=== PATIENT | male | born 2000 | race Caucasian/White ===

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

== ENCOUNTER 2021-07-05 03:04 | Emergency (ER) | payer BC ==
[2021-07-05 03:10] VITALS: TEMP 97.7
[2021-07-05] MEDS ORDERED: MORPHINE SULFATE 4 MG/ML SYRINGE IV STA (04:05)
[2021-07-05] MEDS ORDERED: KETOROLAC 15 MG/ML 1 ML VIAL IVP STA (04:05)
[2021-07-05] MEDS ORDERED: SODIUM CHLORIDE 0.9% 500 ML 500 ML IV STA (04:05)
[2021-07-05] MEDS ORDERED: SODIUM CHLORIDE 0.9% 1,000 ML IV STA (04:05)
[2021-07-05] MEDS ORDERED: ONDANSETRON 4 MG/2 ML VIAL IVP STA (04:05)
--- NOTE | 2021-07-05 04:07 | ED ---
Abdominal Pain HPI - General Chief Complaint: Abdominal Pain Stated Complaint: Abdominal pain Time Seen by Provider: 07/05/21 03:23 Source: patient, RN notes reviewed, old records reviewed, Caregiver Mode of arrival: wheelchair - History of Present Illness Initial Comments: This is a 21-year-old male who is presented today for evaluation. Patient presents today for evaluation regards to abdominal pain epigastric right lower quadrant abdominal pain. Family concerned for appendicitis. Patient also had nausea vomiting multiple times night unable to keep anything down as well as low-grade fever. Patient states symptoms began while at work earlier today having persistent. They wax and wane throughout the day but it got worse. Known at work or at home is sick MD Complaint: abdominal pain -: hour(s) Location: diffuse, LLQ, epigastric, suprapubic Radiation: epigastric, suprapubic Migration to: no migration, RLQ Severity: moderate Severity scale (1-10): 7 Quality: fullness, sharp Improves With: nothing Worsens With: nothing Associated Symptoms: nausea, vomiting Treatments Prior to Arrival: other (none) - Related Data Home Medications Medication Instructions Recorded Confirmed No Known Home Medications 10/26/18 10/26/18 Allergies Allergy/AdvReac Type Severity Reaction Status Date / Time No Known Allergies Allergy Verified 07/05/21 03:10 Review of Systems ROS Statement: Those systems with pertinent positive or pertinent negative responses have been documented in the HPI. ROS Other: All systems not noted in ROS Statement are negative. Past Medical History Past Medical History: No Reported History History of Any Multi-Drug Resistant Organisms: None Reported Past Surgical History: No Surgical Hx Reported Past Psychological History: ADD/ADHD Smoking Status: Former smoker Past Alcohol Use History: Occasional Past Drug Use History: None Reported General Exam General appearance: alert, in no apparent distress Head exam: Present: atraumatic, normocephalic, normal inspection Eye exam: Present: normal appearance, PERRL, EOMI. Absent: scleral icterus, conjunctival injection, periorbital swelling ENT exam: Present: normal exam, mucous membranes moist Neck exam: Present: normal inspection. Absent: tenderness, meningismus, lymphadenopathy Respiratory exam: Present: normal lung sounds bilaterally. Absent: respiratory distress, wheezes, rales, rhonchi, stridor Cardiovascular Exam: Present: normal rhythm, tachycardia, normal heart sounds. Absent: systolic murmur, diastolic murmur, rubs, gallop, clicks GI/Abdominal exam: Present: soft, tenderness, guarding, normal bowel sounds. Absent: distended, rebound, rigid Extremities exam: Present: normal inspection, full ROM, normal capillary refill. Absent: tenderness, pedal edema, joint swelling, calf tenderness Back exam: Present: normal inspection Neurological exam: Present: alert, oriented X3, CN II-XII intact Psychiatric exam: Present: normal affect, normal mood Skin exam: Present: warm, dry, intact, normal color. Absent: rash Course Vital Signs 07/05/21 07/05/21 03:07 06:49 Temperature 97.7 F Pulse Rate 105 H 95 Respiratory 18 16 Rate Blood Pressure 127/68 124/80 O2 Sat by Pulse 98 96 Oximetry - Reevaluation(s) Reevaluation #1: 07/05/21 05:11 medical record is reviewed Reevaluation #2: 07/05/21 Patient significantly improved currently feeling better Reevaluation #3: 07/05/21 Patient informed of results and questions have been answered Medical Decision Making - Medical Decision Making 21 male DF for evaluation of episodes of vomiting and diarrhea. Abdominal pain severe epigastric right lower quadrant CT head and pelvis is negative for appendicitis does have significant leukocytosis likely from gas pro-neuritis and illness dehydration patient feeling better here in the ER tolerating oral intake and can be discharged home - Lab Data Result diagrams: 07/05/21 04:06 07/05/21 04:06 Lab Results 07/05/21 07/05/21 07/05/21 Range/Units 04:06 04:06 04:06 WBC 21.2 H (3.8-10.6) k/uL RBC 4.72 (4.30-5.90) m/uL Hgb 14.6 (13.0-17.5) gm/dL Hct 40.5 (39.0-53.0) % MCV 85.8 (80.0-100.0) fL MCH 30.8 (25.0-35.0) pg MCHC 35.9 (31.0-37.0) g/dL RDW 12.2 (11.5-15.5) % Plt Count 243 (150-450) k/uL MPV 8.0 Neutrophils % 89 % Lymphocytes % 4 % Monocytes % 6 % Eosinophils % 1 % Basophils % 0 % Neutrophils # 18.8 H (1.3-7.7) k/uL Lymphocytes # 0.7 L (1.0-4.8) k/uL Monocytes # 1.3 H (0-1.0) k/uL Eosinophils # 0.2 (0-0.7) k/uL Basophils # 0.1 (0-0.2) k/uL Sodium 137 (137-145) mmol/L Potassium 3.5 (3.5-5.1) mmol/L Chloride 105 (98-107) mmol/L Carbon Dioxide 24 (22-30) mmol/L Anion Gap 8 mmol/L BUN 11 (9-20) mg/dL Creatinine 0.71 (0.66-1.25) mg/dL Est GFR (CKD-EPI)AfAm >90 (>60 ml/min/1.73 sqM) Est GFR (CKD-EPI)NonAf >90 (>60 ml/min/1.73 sqM) Glucose 104 H (74-99) mg/dL Plasma Lactic Acid Slava 0.8 (0.7-2.0) mmol/L Calcium 8.6 (8.4-10.2) mg/dL Total Bilirubin 1.0 (0.2-1.3) mg/dL AST 30 (17-59) U/L ALT 29 (4-49) U/L Alkaline Phosphatase 65 (38-126) U/L Total Protein 6.9 (6.3-8.2) g/dL Albumin 4.0 (3.5-5.0) g/dL Amylase 72 (30-110) U/L Lipase 41 (23-300) U/L - Radiology Data Radiology results: report reviewed (CT of the abdomen and pelvis is negative for acute disease), image reviewed Disposition Clinical Impression: Abdominal pain, Gastroenteritis Disposition: HOME SELF-CARE Condition: Good Instructions (If sedation given, give patient instructions): Gastroenteritis (ED), Abdominal Pain (ED) Is patient prescribed a controlled substance at d/c from ED?: No Referrals: Gill Amaya MD [Primary Care Provider] - 1-2 days
--- NOTE | 2021-07-05 04:41 | CT ---
EXAMINATION TYPE: CT abdomen pelvis w con DATE OF EXAM: 07/05/2021 COMPARISON: None HISTORY: abdominal pain CT DLP: 514.6 mGycm Automated exposure control for dose reduction was used. CONTRAST: Performed with IV Contrast, patient injected with 100 mL of Isovue 300. Lung bases are clear. There is no pleural effusion. Heart size is normal. There is no pericardial eff usion. Liver spleen and stomach pancreas and gallbladder appear normal. The bile ducts are not dilate d. There is no adrenal mass. Kidneys show satisfactory contrast opacification. There is no hydronephrosi s. Ureters are not dilated. There is no retroperitoneal adenopathy. Delayed images show normal renal excretion. Bladder distends smoothly. There is no inguinal hernia. There is no free fluid in the pelv is. There is no mesenteric edema. There is no ascites or free air. There is no bowel obstruction. Appendi x not well seen. No sign of thickened appendix. The lumbar vertebrae have normal alignment. There is no compression fracture. Posterior elements are intact. There is no focal bone destruction. The bony pelvis is intact. Hip joints appear normal. IMPRESSION: Negative CT scan abdomen and pelvis. Appendix not seen.
[2021-07-05 06:01] LABS: Basophils # (A) 0.1 k/uL (0-0.2); Basophils % (A) 0 %; Eosinophils # (A) 0.2 k/uL (0-0.7); Eosinophils % (A) 1 %; HCT 40.5 % (39.0-53.0); HGB 14.6 gm/dL (13.0-17.5); Lymphocytes # (A) 0.7 k/uL (1.0-4.8); Lymphocytes % (A) 4 %; MCH 30.8 pg (25.0-35.0); MCHC 35.9 g/dL (31.0-37.0); MCV 85.8 fL (80.0-100.0); Monocytes # (A) 1.3 k/uL (0-1.0); Monocytes % (A) 6 %; Neutrophils # (A) 18.8 k/uL (1.3-7.7); Neutrophils % (A) 89 %; Platelet Count 243 k/uL (150-450); RBC 4.72 m/uL (4.30-5.90); RDW 12.2 % (11.5-15.5); WBC 21.2 k/uL (3.8-10.6)
[2021-07-05 06:19] LABS: ALT 29 U/L (4-49); AST 30 U/L (17-59); African American GFR (CKD) >90 (>60 ml/min/1.73 sqM); Alkaline Phosphatase 65 U/L (38-126); Amylase 72 U/L (30-110); Anion Gap 8 mmol/L; Blood Urea Nitrogen 11 mg/dL (9-20); Calcium 8.6 mg/dL (8.4-10.2); Carbon Dioxide 24 mmol/L (22-30); Chloride 105 mmol/L (98-107); Glucose 104 mg/dL (74-99); Lipase 41 U/L (23-300); Non-African American GFR(CKD) >90 (>60 ml/min/1.73 sqM); Potassium 3.5 mmol/L (3.5-5.1); Sodium 137 mmol/L (137-145); Total Protein 6.9 g/dL (6.3-8.2)
[2021-07-05] MEDS ORDERED: ONDANSETRON 4 MG ODT STARTER PACK 2 TAB BTL PO STA (06:28)
[2021-07-05] MEDS ORDERED: IBUPROFEN 600 MG STARTER PACK 4 TAB BTL PO STA (06:28)
[2021-07-05] MEDS ORDERED: ACET/COD 300 MG/30 MG STARTER PACK 6 TAB BTL PO STA (06:28)
[2021-07-05 06:51] VITALS: BP 124/80; PULSE 95; RESP 16
== END 2021-07-05 06:53 | disposition home or self-care (01) ==
LOC: EC 03:04
DX: K52.9 Noninfective gastroenteritis and colitis, unspecified (principal); F90.9 Attention-deficit hyperactivity disorder, unspecified type; Z87.891 Personal history of nicotine dependence
CPT/HCPCS: 99284; 96374; 96375 ×2; 36415; 80053; 82150; 83605; 83690; 85025; 74177; J2270; J2405; J1885; S0119; Q9967

== ENCOUNTER 2021-07-07 16:21 | Observation (INO) | payer BC ==
--- NOTE | 2021-07-07 17:37 | XR ---
EXAMINATION TYPE: XR KUB DATE OF EXAM: 07/07/2021 5:25 PM INDICATION: Patient age:Male; 21 years old; Reason for study: abdominal pain; COMPARISON: CT abdomen pelvis 07/05/2021. TECHNIQUE: One radiographic view of the abdomen was obtained. FINDINGS: The bowel gas pattern is nonspecific without dilated loops of small or large bowel. There i s no evidence for organomegaly or pneumoperitoneum. The osseous structures are intact. No abnormal calcifications are present. Fecal material and gas are demonstrated throughout the colon and rectum. IMPRESSION: Nonspecific bowel gas pattern without radiographic evidence for acute process.
[2021-07-07 17:57] LABS: ALT 26 U/L (4-49); AST 28 U/L (17-59); African American GFR (CKD) >90 (>60 ml/min/1.73 sqM); Albumin 4.2 g/dL (3.5-5.0); Alkaline Phosphatase 71 U/L (38-126); Amylase 50 U/L (30-110); Anion Gap 9 mmol/L; Blood Urea Nitrogen 16 mg/dL (9-20); Calcium 8.7 mg/dL (8.4-10.2); Carbon Dioxide 28 mmol/L (22-30); Chloride 99 mmol/L (98-107); Glucose 92 mg/dL (74-99); Lipase 32 U/L (23-300); Non-African American GFR(CKD) >90 (>60 ml/min/1.73 sqM); Potassium 3.9 mmol/L (3.5-5.1); Sodium 136 mmol/L (137-145); Total Protein 7.3 g/dL (6.3-8.2)
[2021-07-07 18:19] LABS: Basophils % (A) 0 %; Eosinophils # (A) 0.2 k/uL (0-0.7); Eosinophils % (A) 2 %; HCT 44.7 % (39.0-53.0); HGB 15.4 gm/dL (13.0-17.5); Lymphocytes # (A) 1.4 k/uL (1.0-4.8); Lymphocytes % (A) 15 %; MCH 30.4 pg (25.0-35.0); MCHC 34.5 g/dL (31.0-37.0); Mean Platelet Volume 7.7; Monocytes # (A) 0.7 k/uL (0-1.0); Monocytes % (A) 8 %; Neutrophils # (A) 6.6 k/uL (1.3-7.7); Neutrophils % (A) 72 %; Platelet Count 225 k/uL (150-450); RBC 5.08 m/uL (4.30-5.90); RDW 12.6 % (11.5-15.5); WBC 9.2 k/uL (3.8-10.6)
[2021-07-07 20:58] LABS: Appearance,Urine Clear (Clear); Bacteria,Urine Rare /hpf; Bilirubin,Urine Negative (Negative); Blood,Urine Negative (Negative); Color,Urine Yellow; Glucose,Urine (UA) Negative (Negative); Ketones,Urine Negative (Negative); Leukocyte Esterase,Urine Trace (Negative); Mucus,Urine Rare /hpf; Nitrite,Urine Negative (Negative); Protein,Urine Negative (Negative); RBC,Urine <1 /hpf (0-5); Specific Gravity,Urine 1.024 (1.001-1.035); WBC,Urine 11 /hpf (0-5)
[2021-07-07] MEDS ORDERED: SODIUM CHLORIDE 0.9% 1,000 ML IV ONE (21:47)
[2021-07-07] MEDS ORDERED: KETOROLAC 15 MG/ML 1 ML VIAL IVP STA (22:00)
--- NOTE | 2021-07-07 22:18 | CT ---
EXAMINATION TYPE: CT abdomen pelvis w con DATE OF EXAM: 07/07/2021 COMPARISON: 07/05/2021 HISTORY: RLQ pain, appendicitis suspected CT DLP: 582.2 mGycm Automated exposure control for dose reduction was used. CONTRAST: Performed with IV Contrast, patient injected with 100 mL of Isovue 300. Images obtained from the diaphragm to the floor of the pelvis with IV contrast. The lung bases are clear. There is no pleural effusion. Heart size is normal. There is no pericardial effusion. Liver spleen and stomach pancreas and gallbladder appear normal. The bile ducts are not di lated. There is no adrenal mass. Kidneys have normal size and contour. There is no hydronephrosis. Ureters a re not dilated. There is no retroperitoneal adenopathy. Bladder distends smoothly. There is narrowing little hernia. There is small amount of free fluid in t he pelvis. There is some fat stranding in the right paracolic gutter. There is apparent dilated fluid -filled appendix that measures 13 mm in diameter. There is no free air. There is no bowel obstruction. Lumbar vertebra appear intact. There is normal a lignment of the vertebral bodies. Posterior elements are intact. The bony pelvis is intact. Hip joint s are intact. Sacroiliac joints appear normal. IMPRESSION: There is dilated fluid-filled appendix consistent with appendicitis. Small amount of free fluid in th e pelvis. Appendiceal rupture is possible. Abnormalities appear new compared to recent exam.
[2021-07-07] MEDS ORDERED: NALOXONE 0.4 MG/ML 1 ML VIAL IV PRN (22:33)
[2021-07-07] MEDS ORDERED: MORPHINE SULFATE 4 MG/ML SYRINGE IV PRN (22:33)
[2021-07-07] MEDS ORDERED: ONDANSETRON 4 MG/2 ML VIAL IVP PRN (22:33)
--- NOTE | 2021-07-07 22:55 | ED ---
Abdominal Pain HPI - General Chief Complaint: Abdominal Pain Stated Complaint: revisit - abd pain Time Seen by Provider: 07/07/21 21:02 Source: patient Mode of arrival: ambulatory Limitations: no limitations - History of Present Illness Initial Comments: Patient is a 21-year-old male presenting with chief complaint of abdominal pain. Patient was seen here 2 days prior with right lower quadrant and periumbilical pain. Abdominal CT showed no abnormalities, and he was instructed to follow up outpatient. Today at his follow-up the provider sent him back to the ER due to his abdomen being distended. Patient is still complaining of pain that comes an d goes. It is a sharp stabbing pain that is localized to the right lower quadrant, and radiates to the left lower quadrant. Patient states that he been nauseous today and vomited several times and he has noticed a slight fever. Pain is worse with meals. Patient has been taking Motrin and Tylenol which is somewhat helpful in alleviating his pain. He admits to dysuria. Denies shortness of breath, chest pain, diarrhea, constipation, urgency, frequency, testicular pain, penile pain, penile discharge, headache, vision changes, chills, weakness. - Related Data Home Medications Medication Instructions Recorded Confirmed No Known Home Medications 10/26/18 07/07/21 Allergies Allergy/AdvReac Type Severity Reaction Status Date / Time No Known Allergies Allergy Verified 07/07/21 22:40 Review of Systems ROS Statement: Those systems with pertinent positive or pertinent negative responses have been documented in the HPI. ROS Other: All systems not noted in ROS Statement are negative. Past Medical History Past Medical History: No Reported History History of Any Multi-Drug Resistant Organisms: None Reported Past Surgical History: No Surgical Hx Reported Past Psychological History: ADD/ADHD Smoking Status: Former smoker Past Alcohol Use History: Occasional Past Drug Use History: None Reported General Exam Limitations: no limitations General appearance: alert, in distress (in pain) Head exam: Present: atraumatic, normocephalic, normal inspection Eye exam: Present: normal appearance, PERRL, EOMI. Absent: scleral icterus, conjunctival injection, periorbital swelling Neck exam: Present: normal inspection Respiratory exam: Present: normal lung sounds bilaterally. Absent: respiratory distress, wheezes, rales, rhonchi, stridor Cardiovascular Exam: Present: regular rate, normal rhythm, normal heart sounds. Absent: systolic murmur, diastolic murmur, rubs, gallop, clicks GI/Abdominal exam: Present: distended, tenderness, guarding, rebound, normal bowel sounds. Absent: rigid Neurological exam: Present: alert, oriented X3, CN II-XII intact Psychiatric exam: Present: normal affect, normal mood Skin exam: Present: warm, dry, intact, normal color. Absent: rash Course Vital Signs 07/07/21 07/07/21 07/07/21 17:12 17:16 23:53 Temperature 100.9 F H 98.5 F Pulse Rate 77 Respiratory 18 Rate Blood Pressure 120/77 O2 Sat by Pulse 100 Oximetry 07/08/21 01:00 Temperature 98.6 F Pulse Rate 60 Respiratory 18 Rate Blood Pressure 111/67 O2 Sat by Pulse 100 Oximetry - Reevaluation(s) Reevaluation #1: Spoke with Dr. Kaufman. Advised starting patient on IV Zosyn and fluids. Surgery will follow-up in the morning. Patient is resting, states his pain has gone down from an 8 out of 10 to a 5 out of 10. 07/07/21 23:02 Medical Decision Making - Medical Decision Making Patient is a 21-year-old female presenting with chest pain. Pain is located in the right lower quadrant and radiates to the left lower quadrant and periumbilical area. He was seen in this ER 2 days ago for evaluation, CT was negative and he was advised to follow up outpatient. During his follow-up today the provider advised him to report to the ER due to abdominal distention. On exam he is diffusely tender and guarding. Positive for rebound tenderness. No leukocytosis, UA indicates potential infection of the urinary tract. Pt received 1L IV NS bolus and 15mg toradol, pain was responsive to toradol. Repeat CT is positive for appendicitis with potential rupture. I spoke with Dr. Kaufman who advised admission with IV fluids and Zosyn, surgery will follow up in the morning. I informed the patient and his father of diagnoses and course of treatment. Answered all questions. Patient conveyed verbal understanding and agreed to the plan. I discussed this case with my attending Dr. Chavez. - Lab Data Result diagrams: 07/07/21 17:37 07/07/21 17:37 Lab Results 07/07/21 07/07/21 07/07/21 Range/Units 17:37 17:37 17:37 WBC 9.2 (3.8-10.6) k/uL RBC 5.08 (4.30-5.90) m/uL Hgb 15.4 (13.0-17.5) gm/dL Hct 44.7 (39.0-53.0) % MCV 88.0 (80.0-100.0) fL MCH 30.4 (25.0-35.0) pg MCHC 34.5 (31.0-37.0) g/dL RDW 12.6 (11.5-15.5) % Plt Count 225 (150-450) k/uL MPV 7.7 Neutrophils % 72 % Lymphocytes % 15 % Monocytes % 8 % Eosinophils % 2 % Basophils % 0 % Neutrophils # 6.6 (1.3-7.7) k/uL Lymphocytes # 1.4 (1.0-4.8) k/uL Monocytes # 0.7 (0-1.0) k/uL Eosinophils # 0.2 (0-0.7) k/uL Basophils # 0.0 (0-0.2) k/uL Sodium 136 L (137-145) mmol/L Potassium 3.9 (3.5-5.1) mmol/L Chloride 99 (98-107) mmol/L Carbon Dioxide 28 (22-30) mmol/L Anion Gap 9 mmol/L BUN 16 (9-20) mg/dL Creatinine 0.99 (0.66-1.25) mg/dL Est GFR (CKD-EPI)AfAm >90 (>60 ml/min/1.73 sqM) Est GFR (CKD-EPI)NonAf >90 (>60 ml/min/1.73 sqM) Glucose 92 (74-99) mg/dL Plasma Lactic Acid Slava 0.8 (0.7-2.0) mmol/L Calcium 8.7 (8.4-10.2) mg/dL Total Bilirubin 1.0 (0.2-1.3) mg/dL AST 28 (17-59) U/L ALT 26 (4-49) U/L Alkaline Phosphatase 71 (38-126) U/L Total Protein 7.3 (6.3-8.2) g/dL Albumin 4.2 (3.5-5.0) g/dL Amylase 50 (30-110) U/L Lipase 32 (23-300) U/L Urine Color Urine Appearance (Clear) Urine pH (5.0-8.0) Ur Specific [place] (1.001-1.035) Urine Protein (Negative) Urine Glucose (UA) (Negative) Urine Ketones (Negative) Urine Blood (Negative) Urine Nitrite (Negative) Urine Bilirubin (Negative) Urine Urobilinogen (<2.0) mg/dL Ur Leukocyte Esterase (Negative) Urine RBC (0-5) /hpf Urine WBC (0-5) /hpf Urine Bacteria (None) /hpf Urine Mucus (None) /hpf 07/07/21 Range/Units 20:32 WBC (3.8-10.6) k/uL RBC (4.30-5.90) m/uL Hgb (13.0-17.5) gm/dL Hct (39.0-53.0) % MCV (80.0-100.0) fL MCH (25.0-35.0) pg MCHC (31.0-37.0) g/dL RDW (11.5-15.5) % Plt Count (150-450) k/uL MPV Neutrophils % % Lymphocytes % % Monocytes % % Eosinophils % % Basophils % % Neutrophils # (1.3-7.7) k/uL Lymphocytes # (1.0-4.8) k/uL Monocytes # (0-1.0) k/uL Eosinophils # (0-0.7) k/uL Basophils # (0-0.2) k/uL Sodium (137-145) mmol/L Potassium (3.5-5.1) mmol/L Chloride (98-107) mmol/L Carbon Dioxide (22-30) mmol/L Anion Gap mmol/L BUN (9-20) mg/dL Creatinine (0.66-1.25) mg/dL Est GFR (CKD-EPI)AfAm (>60 ml/min/1.73 sqM) Est GFR (CKD-EPI)NonAf (>60 ml/min/1.73 sqM) Glucose (74-99) mg/dL Plasma Lactic Acid Slava (0.7-2.0) mmol/L Calcium (8.4-10.2) mg/dL Total Bilirubin (0.2-1.3) mg/dL AST (17-59) U/L ALT (4-49) U/L Alkaline Phosphatase (38-126) U/L Total Protein (6.3-8.2) g/dL Albumin (3.5-5.0) g/dL Amylase (30-110) U/L Lipase (23-300) U/L Urine Color Yellow Urine Appearance Clear (Clear) Urine pH 6.0 (5.0-8.0) Ur Specific [place] 1.024 (1.001-1.035) Urine Protein Negative (Negative) Urine Glucose (UA) Negative (Negative) Urine Ketones Negative (Negative) Urine Blood Negative (Negative) Urine Nitrite Negative (Negative) Urine Bilirubin Negative (Negative) Urine Urobilinogen 6.0 (<2.0) mg/dL Ur Leukocyte Esterase Trace H (Negative) Urine RBC <1 (0-5) /hpf Urine WBC 11 H (0-5) /hpf Urine Bacteria Rare H (None) /hpf Urine Mucus Rare H (None) /hpf Disposition Clinical Impression: Acute appendicitis, Abdominal pain Disposition: ADMITTED IP TO THIS [facility] Condition: Stable Decision to Admit Reason: Admit from EC Decision Date: 07/07/21 Decision Time: 23:35
[2021-07-07] MEDS ORDERED: PIPERACILLIN-TAZOBACTAM 3.375 GM in SODIUM CHLORIDE 0.9% 100 ML IVPB ONE (23:00)
[2021-07-07] MEDS: SODIUM CHLORIDE 0.9% 1,000 ML IV SCH (23:47)
[2021-07-08] MEDS ORDERED: PIPERACILLIN-TAZOBACTAM 3.375 GM in SODIUM CHLORIDE 0.9% 100 ML IVPB SCH ×2
[2021-07-08 05:21] LABS: ALT 21 U/L (4-49); AST 22 U/L (17-59); African American GFR (CKD) >90 (>60 ml/min/1.73 sqM); Albumin 3.3 g/dL (3.5-5.0); Alkaline Phosphatase 59 U/L (38-126); Anion Gap 4 mmol/L; Blood Urea Nitrogen 15 mg/dL (9-20); Calcium 8.3 mg/dL (8.4-10.2); Carbon Dioxide 27 mmol/L (22-30); Chloride 104 mmol/L (98-107); Glucose 89 mg/dL (74-99); Non-African American GFR(CKD) >90 (>60 ml/min/1.73 sqM); Potassium 3.8 mmol/L (3.5-5.1); Sodium 135 mmol/L (137-145); Total Bilirubin 0.7 mg/dL (0.2-1.3); Total Protein 5.9 g/dL (6.3-8.2)
[2021-07-08 05:27] LABS: Basophils # (A) 0.1 k/uL (0-0.2); Basophils % (A) 1 %; Eosinophils # (A) 0.3 k/uL (0-0.7); Eosinophils % (A) 4 %; HCT 38.8 % (39.0-53.0); HGB 13.5 gm/dL (13.0-17.5); Lymphocytes # (A) 2.1 k/uL (1.0-4.8); Lymphocytes % (A) 25 %; MCH 30.4 pg (25.0-35.0); MCHC 34.7 g/dL (31.0-37.0); MCV 87.7 fL (80.0-100.0); Monocytes # (A) 0.9 k/uL (0-1.0); Monocytes % (A) 10 %; Neutrophils # (A) 4.9 k/uL (1.3-7.7); Neutrophils % (A) 57 %; Platelet Count 188 k/uL (150-450); RBC 4.43 m/uL (4.30-5.90); RDW 12.1 % (11.5-15.5); WBC 8.5 k/uL (3.8-10.6)
[2021-07-08] MEDS: PIPERACILLIN-TAZOBACTAM 3.375 GM in SODIUM CHLORIDE 0.9% 100 ML IVPB SCH ×2 (08:02→17:11)
[2021-07-08] MEDS: SODIUM CHLORIDE 0.9% 1,000 ML IV SCH ×3 (08:03→21:23)
[2021-07-08] MEDS ORDERED: IV FLUID CONTINUATION 800 ML IV ONE (08:24)
[2021-07-08] MEDS ORDERED: ONDANSETRON 4 MG/2 ML VIAL IVP ONE (08:34)
[2021-07-08] MEDS ORDERED: HEPARIN SODIUM,PORCINE 5,000 UNIT/ML 1 ML VIAL SQ ONE (08:34)
[2021-07-08] MEDS ORDERED: HEPARIN SODIUM,PORCINE/PF 5,000 UNIT/0.5 ML SYRINGE SQ ONE (08:35)
[2021-07-08] MEDS ORDERED: DEXAMETHASONE SOD PHOSPHATE 4 MG/ML 1 ML VIAL IV ONE (08:35)
--- NOTE | 2021-07-08 08:46 | P.GSHP ---
History of Present Illness H&P Date: 07/08/21 Chief Complaint: Acute appendicitis This a 21-year-old male presents today for laparoscopic appendectomy. Patient was admitted through the emergency room with right lower quadrant pain. His CAT scan suggestive of acute appendicitis Past Medical History Past Medical History: No Reported History History of Any Multi-Drug Resistant Organisms: None Reported Past Surgical History: No Surgical Hx Reported Past Psychological History: ADD/ADHD Smoking Status: Former smoker Past Alcohol Use History: Occasional Past Drug Use History: None Reported Medications and Allergies Home Medications Medication Instructions Recorded Confirmed Type No Known Home Medications 10/26/18 07/07/21 History Allergies Allergy/AdvReac Type Severity Reaction Status Date / Time No Known Allergies Allergy Verified 07/07/21 22:40 Surgical - Exam Vital Signs Pulse Resp BP Pulse Ox 77 18 120/77 100 07/07/21 17:12 07/07/21 17:12 07/07/21 17:12 07/07/21 17:12 - General well developed, well nourished, no distress - Eyes PERRL - ENT normal pinna - Neck no masses - Respiratory normal expansion - Cardiovascular Rhythm: regular - Abdomen Abdomen: soft, non tender Results - Labs 07/08/21 04:45 07/08/21 04:45 Abnormal Lab Results - Last 24 Hours (Table) 07/07/21 07/07/21 07/08/21 Range/Units 17:37 20:32 04:45 Hct 38.8 L (39.0-53.0) % Sodium 136 L (137-145) mmol/L Calcium (8.4-10.2) mg/dL Total Protein (6.3-8.2) g/dL Albumin (3.5-5.0) g/dL Ur Leukocyte Esterase Trace H (Negative) Urine WBC 11 H (0-5) /hpf Urine Bacteria Rare H (None) /hpf Urine Mucus Rare H (None) /hpf 07/08/21 Range/Units 04:45 Hct (39.0-53.0) % Sodium 135 L (137-145) mmol/L Calcium 8.3 L (8.4-10.2) mg/dL Total Protein 5.9 L (6.3-8.2) g/dL Albumin 3.3 L (3.5-5.0) g/dL Ur Leukocyte Esterase (Negative) Urine WBC (0-5) /hpf Urine Bacteria (None) /hpf Urine Mucus (None) /hpf Microbiology - Last 24 Hours (Table) 07/07/21 20:32 Urine Culture - Preliminary Urine,Voided Diabetes panel 07/07/21 07/08/21 Range/Units 17:37 04:45 Sodium 136 L 135 L (137-145) mmol/L Potassium 3.9 3.8 (3.5-5.1) mmol/L Chloride 99 104 (98-107) mmol/L Carbon Dioxide 28 27 (22-30) mmol/L BUN 16 15 (9-20) mg/dL Creatinine 0.99 0.90 (0.66-1.25) mg/dL Glucose 92 89 (74-99) mg/dL Calcium 8.7 8.3 L (8.4-10.2) mg/dL AST 28 22 (17-59) U/L ALT 26 21 (4-49) U/L Alkaline Phosphatase 71 59 (38-126) U/L Total Protein 7.3 5.9 L (6.3-8.2) g/dL Albumin 4.2 3.3 L (3.5-5.0) g/dL Calcium panel 07/07/21 07/08/21 Range/Units 17:37 04:45 Calcium 8.7 8.3 L (8.4-10.2) mg/dL Albumin 4.2 3.3 L (3.5-5.0) g/dL Pituitary panel 07/07/21 07/08/21 Range/Units 17:37 04:45 Sodium 136 L 135 L (137-145) mmol/L Potassium 3.9 3.8 (3.5-5.1) mmol/L Chloride 99 104 (98-107) mmol/L Carbon Dioxide 28 27 (22-30) mmol/L BUN 16 15 (9-20) mg/dL Creatinine 0.99 0.90 (0.66-1.25) mg/dL Glucose 92 89 (74-99) mg/dL Calcium 8.7 8.3 L (8.4-10.2) mg/dL Adrenal panel 07/07/21 07/08/21 Range/Units 17:37 04:45 Sodium 136 L 135 L (137-145) mmol/L Potassium 3.9 3.8 (3.5-5.1) mmol/L Chloride 99 104 (98-107) mmol/L Carbon Dioxide 28 27 (22-30) mmol/L BUN 16 15 (9-20) mg/dL Creatinine 0.99 0.90 (0.66-1.25) mg/dL Glucose 92 89 (74-99) mg/dL Calcium 8.7 8.3 L (8.4-10.2) mg/dL Total Bilirubin 1.0 0.7 (0.2-1.3) mg/dL AST 28 22 (17-59) U/L ALT 26 21 (4-49) U/L Alkaline Phosphatase 71 59 (38-126) U/L Total Protein 7.3 5.9 L (6.3-8.2) g/dL Albumin 4.2 3.3 L (3.5-5.0) g/dL Assessment and Plan Assessment: Acute incised. We'll perform laparoscopic appendectomy.
[2021-07-08] MEDS ORDERED: ROCURONIUM 10 MG/ML (5 ML VIAL) IV ONE (08:47)
[2021-07-08] MEDS ORDERED: fentaNYL (PF) 50 MCG/ML 2 ML AMP ONE (08:47)
[2021-07-08] MEDS ORDERED: LIDOCAINE 1% INJ 10MG/ML (20 ML MDV) ONE (08:47)
[2021-07-08] MEDS ORDERED: MIDAZOLAM 2 MG/2 ML VIAL ONE (08:47)
[2021-07-08] MEDS ORDERED: SUCCINYLCHOLINE CHLORIDE 100 MG/5 ML SYR IV ONE (08:47)
[2021-07-08] MEDS ORDERED: GLYCOPYRROLATE 0.2 MG/ML 2 ML VIAL ONE (08:47)
[2021-07-08] MEDS ORDERED: PROPOFOL 10 MG/ML 20 ML VIAL IV ONE (08:47)
[2021-07-08] MEDS ORDERED: NEOSTIGMINE 1 MG/ML 10 ML VIAL ONE (08:47)
[2021-07-08] MEDS ORDERED: BUPIVACAIN-EPI 0.25%-1:200,000 30 ML VIAL SQ ONE ×2 (09:19)
--- NOTE | 2021-07-08 09:36 | P.OP ---
Date of Procedure: 07/08/21 Preoperative Diagnosis: Acute appendicitis Postoperative Diagnosis: Acute appendicitis Procedure(s) Performed: Laparoscopic appendectomy Anesthesia: JULISA Surgeon: Maksim Kaufman Estimated Blood Loss (ml): 5 Pathology: other (Appendix) Condition: stable Disposition: PACU Operative Findings: Acutely inflamed appendix without evidence of perforation Description of Procedure: HarThe patient's placed on the operating table in the supine position. The patient received general anesthesia. The abdomen was prepped and draped in the usual sterile fashion. The skin was anesthetized 1% local Xylocaine at the trocar sites. Using an 11 blade the skin was incised at the umbilicus. The umbilicus was grasped with a Robert clamp and then a Veress needle was placed into the peritoneal cavity. Position of the Veress needle was confirmed with positive drop test. After adequate insufflation a 5 mm trocar was placed into the peritoneal cavity. The abdomen was further insufflated. And then the laparoscope was placed in the peritoneal cavity. Next a 5 mm trocar was placed in the midline suprapubic position. And then a 10 mm trocar was placed in the midline epigastric position. The patient was rotated with the right side up and in Trendelenburg. The appendix was visualized. The appendix appeared to be inflamed. The appendix was grasped and then using the Harmonic scissors the mesoappendix was divided. A PDS Endoloop was then placed around the base of the appendix. And then the appendix was divided using Harmonic scissors. The appendix was placed into an Endo Catch and brought out through the 10 mm trocar site. The abdomen was irrigated. There is no bleeding seen. The trochars withdrawn. The skin was closed interrupted 3-0 Monocryl suture. Dermabond dressing was applied. Patient was sent to recovery room in stable condition.
[2021-07-08] MEDS ORDERED: HYDROmorphone 0.5 MG/0.5 ML SYRINGE IVP ONE (11:49)
--- NOTE | 2021-07-08 13:58 | CONS ---
CONSULTATION REASON FOR CONSULTATION: Advice regarding ADD/ADHD and other medications requested by Dr. Kaufman. HISTORY OF PRESENT ILLNESS: This 21 year-old gentleman with a past medical history of ADD/ADHD. No other significant cardiac/respiratory illnesses was admitted with significant abdominal pain, acute appendicitis. The sodium was 136 and the patient underwent laparoscopic appendectomy. Urine has 11 WBCs. The patient is also started on broad-spectrum IV antibiotics. No chest pain. No palpitations. No fever. No cough. PAST MEDICAL HISTORY: History ADD/ADHD. HOME MEDICATIONS: None. ALLERGIES: None. FAMILY HISTORY: No history of heart disease or strokes in the family. SOCIAL HISTORY: Previous smoking. REVIEW OF SYSTEMS: 14-point review is negative except as mentioned earlier. PHYSICAL EXAMINATION: Pulse is 56. Blood pressure 105/59, respirations 16. HEENT: Conjunctivae normal. CARDIOVASCULAR system: S1, S2 muffled. RESPIRATION: Breath sounds diminished in the bases. No rhonchi. No crackles. ABDOMEN: Soft, status post surgery. Bowel sounds diminished. LEGS: No edema. No swelling. NERVOUS SYSTEM: No focal deficits. SKIN: No ulcers, no rashes and no bleeding. JOINTS: No active deforming arthropathy. LYMPHATICS: No lymph node palpable in the neck, axilla and groin. LAB: Sodium 136. Other labs reviewed. CT scan reviewed. ASSESSMENT: 1. Acute appendicitis, status post laparoscopic appendectomy. 2. Hyponatremia. 3. History of attention-deficit disorder/attention-deficit/hyperactivity disorder. 4. Bradycardia, possibly sinus. RECOMMENDATIONS AND DISCUSSION: This 21-year-old gentleman presented after surgery. At this time, I recommend to continue the current medications. DVT prophylaxis. Incentive spirometry. Proton pump inhibitors. Recommend close followup with Dr. Amaya in the outpatient setting. Thank you Dr. Kaufman. Continue the antibiotics. MMODL / IJN: [id number] /
[2021-07-08] MEDS: PANTOPRAZOLE 40 MG/10 ML VIAL IVP SCH (14:15)
[2021-07-08] MEDS: HYDROmorphone 1 MG/ML 1 ML SYRINGE IVP PRN ×2 (17:15→21:55)
[2021-07-09] MEDS: PIPERACILLIN-TAZOBACTAM 3.375 GM in SODIUM CHLORIDE 0.9% 100 ML IVPB SCH ×2 (00:16→09:25)
[2021-07-09] MEDS: HYDROmorphone 1 MG/ML 1 ML SYRINGE IVP PRN (02:44)
[2021-07-09] MEDS: SODIUM CHLORIDE 0.9% 1,000 ML IV SCH ×2 (04:33→09:27)
[2021-07-09 07:40] VITALS: BP 92/46; PULSE 80; RESP 18; TEMP 98
[2021-07-09] MEDS ORDERED: ENOXAPARIN 40 MG/0.4 ML SYRINGE SQ SCH (09:00)
[2021-07-09] MEDS: PANTOPRAZOLE 40 MG/10 ML VIAL IVP SCH (09:25)
[2021-07-09] MEDS ORDERED: HYDROcodone/APAP 5-325MG 1 EACH TAB PO PRN (11:20)
--- NOTE | 2021-07-09 12:50 | P.PN ---
Subjective Progress Note Date: 07/09/21 This is a pleasant 21-year-old male who was recently admitted with under surgical services with significant abdominal pain and found to have an acute appendicitis. Patient is status post appendectomy with general surgery yesterday. Patient denies fever or increasing abdominal pain. Patient was resumed on regular diet yesterday and tolerated with no reports of nausea or vomiting. Patient reports the passing gas but no bowel movement as of yet. Encourage the patient increase activity as tolerated and continue with oral intake. Pain management per primary service. Patient denies any chest pain, shortness of breath, or palpitations. Patient is afebrile. Patient continues on IV antibiotics along with normal saline and will decrease the dose to 75 ML per hour. Review of systems: Constitutional: No reports of fatigue, fever, or chills Cardiovascular: No reports of chest pain or palpitations Respiratory: No reports of shortness of breath or cough GI: No reports of nausea, no reports of of vomiting, no reports of bowel movement as of yet, patient reports the passing gas : No reports of dysuria or retention Neurovascular: No reports of generalized weakness All medications have been reviewed Active Medications Hydrocodone Bitart/Acetaminophen (Hydrocodone/Apap 5-325mg 1 Each Tab) 1 each PO Q4HR PRN PRN Reason: Moderate Pain Enoxaparin Sodium (Enoxaparin 40 Mg/0.4 Ml Syringe) 40 mg SQ DAILY [facility] Last Admin: 07/09/21 09:28 Dose: Not Given Documented by: Hydromorphone HCl (Hydromorphone 1 Mg/Ml 1 Ml Syringe) 1 mg IVP Q1HR PRN PRN Reason: Severe Pain Last Admin: 07/09/21 02:44 Dose: 1 mg Documented by: Sodium Chloride (Saline 0.9%) 1,000 mls @ 130 mls/hr IV .[id number] [facility] Last Admin: 07/09/21 09:27 Dose: 130 mls/hr Documented by: Piperacillin Sod/Tazobactam (Sod 3.375 gm/ Sodium Chloride) 100 mls @ 25 mls/hr IVPB Q8HR [facility]; Protocol Last Admin: 07/09/21 09:25 Dose: 25 mls/hr Documented by: Naloxone HCl (Naloxone 0.4 Mg/Ml 1 Ml Vial) 0.2 mg IV Q2M PRN PRN Reason: Opioid Reversal Ondansetron HCl (Ondansetron 4 Mg/2 Ml Vial) 4 mg IVP Q8HR PRN PRN Reason: Nausea And Vomiting Pantoprazole Sodium (Pantoprazole 40 Mg/10 Ml Vial) 40 mg IVP DAILY [facility] Last Admin: 07/09/21 09:25 Dose: 40 mg Documented by: PHYSICAL EXAMINATION: GENERAL: The patient is alert and oriented x4, Well developed, well nourished. Thin built HEENT: Pupils are round and equally reacting to light. EOMI. does have scleral icterus. No conjunctival pallor. Normocephalic, atraumatic. No pharyngeal erythema. No thyromegaly. CARDIOVASCULAR: S1 and S2 muffled PULMONARY: diminished breath sounds bilaterally with no wheezing or rhonchi noted. ABDOMEN: soft. Nontender on exam. non-distended, normoactive bowel sounds. No palpable organomegaly. MUSCULOSKELETAL: No joint swelling or deformity. EXTREMITIES: No cyanosis, clubbing, or pedal edema. Small surgical incisions on the abdomen are dry and intact with glue noted NEUROLOGICAL: Gross neurological examination did not reveal any focal deficits. SKIN: No rashes. Assessment: Acute appendicitis, status post laparoscopic appendectomy Hyponatremia history of attention deficit disorder, attention deficit hyperactivity disorder Bradycardia, possibly sinus GI prophylaxis DVT prophylaxis Full code Plan: Recommend to continue with current medications and management per primary s ervice. Patient is status post appendectomy and denies any fevers or worsening abdominal pain overnight. Patient did tolerate regular diet last night and did not eat much of breakfast because he states he fell asleep and the tray was taken. Encouraged oral intake and along with increased activity as tolerated. Incentive spirometer at the bedside and encourage the patient to continue using at least 10 times every hour while awake. Patient reports the passing gas with no bowel movement as of yet. Patient is urinating and denies any burning or frequency with urination. Will continue to follow along with general surgery during hospitalization. Thank you for this consultation. The impression and plan of care has been dictated by Charu Alcantar, nurse practitioner as directed. MD Maribell I have performed a history and examination and MDM of this patient, discussed the same with the dictator, and agree with the dictator's assessment and plan as written ,documented as a scribe. Based on total visit time, I have performed more than 50% of the visit. Total number of minutes spent on this visit, 15 minutes. Any additional findings or plans will be noted. Objective - Vital Signs Vital signs: Vital Signs Temp 98 F 07/09/21 07:00 Pulse 80 07/09/21 07:00 Resp 18 07/09/21 07:00 BP 92/46 07/09/21 07:00 Pulse Ox 98 07/09/21 07:00 Intake & Output 07/08/21 07/09/21 07/09/21 18:59 06:59 18:59 Intake Total 975 Output Total 5 Balance 970 Weight 56.245 kg Intake: IV 975 Output: Estimated Blood Loss 5 Other: # Voids 1 1 - Labs CBC & Chem 7: 07/08/21 04:45 07/08/21 04:45
[2021-07-09 14:19] VITALS: BMI 19.4
--- NOTE | 2021-07-09 14:48 | P.DS ---
Providers Date of admission: 07/08/21 00:00 Expected date of discharge: 07/09/21 Attending physician: Maksim Kaufman Consults: 07/08/21 11:22 Consult Physician Routine Consulting Provider: Meenu Lerma Consult Reason/Comments: Medical management Do you want consulting provider notified?: Yes Primary care physician: Gill Amaya Hospital Course: Discharge diagnosis 1. Acute appendicitis status post laparoscopic appendectomy Hospital course This a 21-year-old male presents today for laparoscopic appendectomy. Patient was admitted through the emergency room with right lower quadrant pain. His CAT scan suggestive of acute appendicitis. Patient status post laparoscopic appendectomy. Patient tolerated surgery well. Pain is controlled. Tolerating diet. Having flatus. He has been up and ambulate in. Afebrile. Incision sites clean dry and intact. Stable for discharge. Please refer to chart for any further details. Physician Vallez Filter Operator note has been reviewed by physician. Signing provider agrees with the documented findings, assessment, and plan of care. Patient Condition at Discharge: Stable Plan - Discharge Summary Discharge Rx Participant: No New Discharge Prescriptions: New Ibuprofen [Motrin] 600 mg PO Q8HR PRN #30 tab PRN Reason: Pain Acetaminophen Tab [Tylenol Tab] 650 mg PO Q4H PRN #30 tablet PRN Reason: Pain Docusate [Colace] 100 mg PO BID #30 capsule Discharge Medication List Acetaminophen Tab [Tylenol Tab] 650 mg PO Q4H PRN #30 tablet 07/09/21 [Rx] Docusate [Colace] 100 mg PO BID #30 capsule 07/09/21 [Rx] Ibuprofen [Motrin] 600 mg PO Q8HR PRN #30 tab 07/09/21 [Rx] Follow up Appointment(s)/Referral(s): Gill Amaya MD [Primary Care Provider] - 1-2 days Maksim Kaufman MD [STAFF PHYSICIAN] - 07/18/21 11:30 am Activity/Diet/Wound Care/Special Instructions: No driving while taking [place] No lifting over 25 pounds You may shower. No soaking or tub baths for 2 weeks Very light activity until you are reevaluated at your follow up appointment with your surgeon Discharge Disposition: HOME SELF-CARE
== END 2021-07-09 16:32 | disposition home or self-care (01) ==
LOC: EC 16:21 → 4SSUR 07-08 → 6NMEDSUR 07-08 00:35
PROVIDERS: ADMIT Surgery; ATTEND Surgery
DX: K35.80 Unspecified acute appendicitis (principal); F90.9 Attention-deficit hyperactivity disorder, unspecified type; E87.1 Hypo-osmolality and hyponatremia; R00.1 Bradycardia, unspecified; R07.9 Chest pain, unspecified; R30.0 Dysuria; Z87.891 Personal history of nicotine dependence
CPT/HCPCS: 96361 ×2; 96365; 96366; 96375; 99285; 36415; 88304; 80053 ×2; 82150; 83605; 83690; 85025 ×2; 81001; 87086; 74018; 74177; 44970; G0378 ×2; J2543 ×3; J2250; J2270; J1644; J1100; J2710; J2405; J2001; J3010; J1170 ×3; J1885; J0330; J2704; C9113 ×2; Q9967